=== PATIENT | female | born 1960 | race Hispanic/Latino ===

== ENCOUNTER 2021-05-21 08:13 | Emergency (ER) | payer BC ==
[~2021-05-21] VITALS: Ht 152.4 cm; Wt 57.2 kg
[2021-05-21] MEDS ORDERED: ARIMIDEX1 MG PO (08:29)
[2021-05-21] MEDS ORDERED: ASPIRIN CHEW81 MG PO (08:29)
[2021-05-21] MEDS ORDERED: MICARDIS40 MG PO (08:29)
[2021-05-21] MEDS ORDERED: ATORVASTATIN CA20 MG PO (08:29)
[2021-05-21] MEDS ORDERED: ONDANSETRON HCL INJ 2MG/ML 2ML 2 MG/ML VIAL IV STA (08:46)
[2021-05-21] MEDS ORDERED: SODIUM CHLORIDE 0.9% 1000ML 1,000 ML IV SCH (09:00)
[2021-05-21] MEDS ORDERED: ONDANSETRON ODT4 MG PO (09:58)
== END 2021-05-21 10:18 | disposition home or self-care (01) ==
LOC: FSED 08:40
DX: R11.2 Nausea with vomiting, unspecified (principal); K52.9 Noninfective gastroenteritis and colitis, unspecified; E86.0 Dehydration; I10 Essential (primary) hypertension; E78.5 Hyperlipidemia, unspecified; Z85.3 Personal history of malignant neoplasm of breast
CPT/HCPCS: 80048; 80076; 81003; 85025; 96374; 99283; J2405; J7030